=== PATIENT | female | born 1945 | race Caucasian/White ===

== ENCOUNTER 2016-08-27 15:33 | Inpatient (IN) | payer MEDICARE, OTHER ==
[~2016-08-27] VITALS: Ht 165.1 cm; Wt 49.8 kg
[2016-08-27] MEDS ORDERED: PRINIVIL10 MG PO (16:25)
[2016-08-27 16:57] LABS: BASO % 0.2 % (0.0-2.0); EOS # 0.1 (0.0-0.7); EOS % 0.7 % (0-4.0); GRAN # 7.1 (1.4-6.5); HEMOGLOBIN 12.9 g/dl (12.5-16.0); LYMPH # 0.8 (1.2-3.4); LYMPH % 8.9 % (20.0-51.0); MEAN CELL VOLUME 90 fl (80.0-100.0); MEAN CORPUSCULAR HEMOGLOBIN 32 pg (27.0-31.0); MEAN CORPUSCULAR HGB CONC 35 g/dl (33.0-37.0); MEAN PLATELET VOLUME 9.1 fl (7.4-10.4); MONO # 0.6 (0.1-0.6); MONO % 6.9 % (1.7-9.3); PLATELET COUNT 187 K/mm3 (130-400); RED BLOOD COUNT 4.06 M/mm3 (4.10-5.30); REDCELL DISTRIBUTION WIDTH-CV 13.3 % (11.5-14.5); WHITE BLOOD COUNT 8.6 K/mm3 (4.8-10.8)
[2016-08-27 17:02] LABS: HEMATOCRIT 36.6 % (37.0-47.0)
[2016-08-27 17:06] LABS: ADJUSTED CALCIUM 9.1 mg/dL (8.4-10.2); ALBUMIN 3.8 gm/dL (3.5-5.0); BILIRUBIN,TOTAL 0.8 mg/dL (0.0-1.0); CALCIUM 8.9 mg/dL (8.4-10.2); CREATININE, serum 0.52 mg/dL (0.52-1.25); POTASSIUM 4.4 mmol/L (3.4-5.0); PROTHROMBIN TIME 10.9 SECONDS (9.7-12.8); TOTAL PROTEIN 6.8 gm/dL (6.4-8.2)
[2016-08-27 18:15] VITALS: BP 175/62; PULSE 79; TEMP 98.2
[2016-08-27 18:20] VITALS: BP 175/62; PULSE 79; TEMP 98.2
[2016-08-27] MEDS ORDERED: ASPI325T6 PO (18:23)
[2016-08-27] MEDS ORDERED: FERROUS GL325 MG/TAB PO (18:23)
[2016-08-27] MEDS ORDERED: TYLENOL 325MG325 MG PO (18:24)
[2016-08-27] MEDS ORDERED: VITAMIN C500 MG PO (18:25)
[2016-08-27 21:49] VITALS: BP 171/59; PULSE 71; TEMP 98.4
[2016-08-28] VITALS (12 sets, daily range): BP systolic 131–198; BP diastolic 41–65; PULSE 7–93; TEMP 98–99
[2016-08-28 07:50] LABS: BASO % 0.3 % (0.0-2.0); EOS # 0.2 (0.0-0.7); EOS % 2.2 % (0-4.0); GRAN # 5.3 (1.4-6.5); GRAN % 73.1 % (42.2-75.2); LYMPH % 13.8 % (20.0-51.0); MEAN CELL VOLUME 91 fl (80.0-100.0); MEAN CORPUSCULAR HGB CONC 35 g/dl (33.0-37.0); MEAN PLATELET VOLUME 9.7 fl (7.4-10.4); MONO # 0.7 (0.1-0.6); MONO % 10.2 % (1.7-9.3); PLATELET COUNT 177 K/mm3 (130-400); RED BLOOD COUNT 3.68 M/mm3 (4.10-5.30); REDCELL DISTRIBUTION WIDTH-CV 13.6 % (11.5-14.5); WHITE BLOOD COUNT 7.3 K/mm3 (4.8-10.8)
[2016-08-28 07:59] LABS: CALCIUM 8.3 mg/dL (8.4-10.2); CREATININE, serum 0.43 mg/dL (0.52-1.25); POTASSIUM 3.7 mmol/L (3.4-5.0)
[2016-08-28 08:01] LABS: HEMATOCRIT 33.5 % (37.0-47.0); HEMOGLOBIN 11.7 g/dl (12.5-16.0); MEAN CORPUSCULAR HEMOGLOBIN 32 pg (27.0-31.0)
[2016-08-28 13:07] LABS: PH 6 (5-8); SQUAMOUS EPITHELIAL None Seen /hpf; URINE APPEARANCE Clear; URINE BACTERIA None Seen /hpf; URINE BILIRUBIN Negative (NEGATIVE); URINE BLOOD 1+ (NEGATIVE); URINE COLOR Yellow; URINE GLUCOSE Negative (NEGATIVE); URINE KETONE Negative (NEGATIVE); URINE UROBILINOGEN Negative (NEGATIVE); URINE WBC 0-2 /hpf
[2016-08-29 01:46] VITALS: BP 191/66; PULSE 68; TEMP 97.7
[2016-08-29 07:11] LABS: HEMATOCRIT 37.4 % (37.0-47.0); HEMOGLOBIN 12.8 g/dl (12.5-16.0)
[2016-08-29 07:22] LABS: CALCIUM 9.3 mg/dL (8.4-10.2); CREATININE, serum 0.52 mg/dL (0.52-1.25); POTASSIUM 3.5 mmol/L (3.4-5.0)
[2016-08-29 10:26] VITALS: BP 149/53; PULSE 88; TEMP 98.5
[2016-08-29 14:25] VITALS: BP 150/52; PULSE 83; TEMP 98.7
[2016-08-29 18:08] VITALS: BP 177/71; PULSE 71; TEMP 98.9
[2016-08-29 21:53] VITALS: BP 150/52; PULSE 71; TEMP 98.1
[2016-08-29 23:38] LABS: PH 7 (5-8); SQUAMOUS EPITHELIAL None Seen /hpf; URINE APPEARANCE Clear; URINE BACTERIA Rare /hpf; URINE BILIRUBIN Negative (NEGATIVE); URINE BLOOD 3+ (NEGATIVE); URINE COLOR Straw; URINE GLUCOSE Negative (NEGATIVE); URINE KETONE Negative (NEGATIVE); URINE UROBILINOGEN Negative (NEGATIVE); URINE WBC 0-2 /hpf
[2016-08-30 05:49] VITALS: BP 166/60; PULSE 87; TEMP 98.2
[2016-08-30 06:35] LABS: HEMOGLOBIN 12.2 g/dl (12.5-16.0)
[2016-08-30 06:48] LABS: CALCIUM 8.7 mg/dL (8.4-10.2); CREATININE, serum 0.5 mg/dL (0.52-1.25); POTASSIUM 3.5 mmol/L (3.4-5.0)
[2016-08-30 06:50] LABS: HEMATOCRIT 34.9 % (37.0-47.0)
[2016-08-30 09:29] VITALS: BP 157/59; PULSE 84; TEMP 98.5
[2016-08-30 13:39] VITALS: BP 168/51; PULSE 70; TEMP 98.5
[2016-08-30 17:32] VITALS: BP 147/45; PULSE 72; TEMP 98.4
[2016-08-30 21:31] VITALS: BP 139/62; PULSE 71; TEMP 97.5
[2016-08-31 05:11] VITALS: BP 159/54; PULSE 63; TEMP 98
[2016-08-31 10:37] VITALS: BP 158/47; PULSE 74; TEMP 98.7
[2016-08-31] MEDS ORDERED: NORCO 325 MG-7.1 TAB PO (11:31)
[2016-08-31] MEDS ORDERED: PRINZIDE 12.5 M1 TA1 PO (11:31)
== END 2016-08-31 13:36 | disposition home or self-care (01) | DRG 481 ==
LOC: COL.ER 15:33 → SURG 16:57
PROVIDERS: Family Medicine; Nurse Practitioner Family; Orthopaedic Surgery Sports Medicine; Physician Assistant
PROC: 0QH634Z Insertion of Internal Fixation Device into Right Upper Femur, Percutaneous Approach (ICD-10-PCS; principal; 2016-08-28 09:00)
DX: S72.041A Displaced fracture of base of neck of right femur, initial encounter for closed fracture (principal); E87.1 Hypo-osmolality and hyponatremia; F05 Delirium due to known physiological condition; E44.0 Moderate protein-calorie malnutrition; Z68.1 Body mass index [BMI] 19.9 or less, adult; W18.30XA Fall on same level, unspecified, initial encounter; I10 Essential (primary) hypertension; Z86.73 Personal history of transient ischemic attack (TIA), and cerebral infarction without residual deficits; R33.9 Retention of urine, unspecified
CPT/HCPCS: 99223-AI; 99232-AI; 99233-AI; 99239; A9284; C1713; C1776; J0360; J0690; J1100; J2060; J2270; J2405; J2704; J3010; J7030

== ENCOUNTER 2017-07-23 15:00 | Inpatient (IN) | payer MEDICARE, OTHER ==
[~2017-07-23] VITALS: Ht 167.6 cm; Wt 42.9 kg
[~2017-07-23 15:00] MED LIST: ASPI325T6 PO; FERROUS GL325 MG/TAB PO; NORCO 325 MG-7.1 TAB PO; PRINIVIL10 MG PO; PRINZIDE 12.5 M1 TA1 PO; TYLENOL 325MG325 MG PO; VITAMIN C500 MG PO
[2017-08-02] MEDS ORDERED: PRINZIDE 12.5 M1 TAB PO (12:11)
[2017-08-02] MEDS ORDERED: PRILOSEC10 MG PO (12:12)
[2017-08-02] MEDS ORDERED: ALEVE 220MG220 MG PO (12:12)
[2017-08-05] VITALS (13 sets, daily range): BP systolic 123–169; BP diastolic 50–81; PULSE 57–88; TEMP 97.6–98.6
[2017-08-05] MEDS ORDERED: PLAVIX 75MG TAB75 MG PO (07:31)
[2017-08-05] MEDS ORDERED: LIPITOR 40MG TA40 MG PO (07:31)
[2017-08-05] MEDS ORDERED: ASPIRIN E.C. 8181 MG PO (07:31)
[2017-08-05] MEDS ORDERED: COLACE 100100 MG/CAP PO (07:32)
[2017-08-05] MEDS ORDERED: MULTI VITAMINS1 TAB PO (07:32)
[2017-08-05] MEDS ORDERED: PERCOCET 325 MG1 TA2 PO (07:33)
[2017-08-06 03:07] VITALS: BP 158/82; PULSE 105; TEMP 98.3
[2017-08-06 07:10] LABS: HEMATOCRIT 25.7 % (37.0-47.0); HEMOGLOBIN 8.6 g/dl (12.5-16.0)
[2017-08-06 12:00] VITALS: BP 141/47; PULSE 97; TEMP 98.5
[2017-08-06 19:52] VITALS: BP 132/51; PULSE 81; TEMP 98.7
[2017-08-07 04:23] VITALS: BP 144/46; PULSE 82; TEMP 98.5
[2017-08-07 06:38] LABS: HEMATOCRIT 22.5 % (37.0-47.0); HEMOGLOBIN 7.5 g/dl (12.5-16.0)
[2017-08-07 07:40] VITALS: BP 130/60; PULSE 87; TEMP 98.6
[2017-08-07] MEDS ORDERED: ASPI325T6 PO (11:06)
[2017-08-07 12:13] VITALS: BP 111/43; PULSE 80; TEMP 97.7
== END 2017-08-07 15:40 | disposition home or self-care (01) | DRG 470 ==
LOC: JCC 08-05 06:19
PROVIDERS: Orthopaedic Surgery Sports Medicine
PROC: 0SR90JA Replacement of Right Hip Joint with Synthetic Substitute, Uncemented, Open Approach (ICD-10-PCS; principal; 2017-08-05 10:00)
PROC: 0QP604Z Removal of Internal Fixation Device from Right Upper Femur, Open Approach (ICD-10-PCS; 2017-08-05 10:00)
DX: M87.251 Osteonecrosis due to previous trauma, right femur (principal); S72.141S Displaced intertrochanteric fracture of right femur, sequela; G89.21 Chronic pain due to trauma; I10 Essential (primary) hypertension; Z87.891 Personal history of nicotine dependence; G30.9 Alzheimer's disease, unspecified; F02.80 Dementia in other diseases classified elsewhere, unspecified severity, without behavioral disturbance, psychotic disturbance, mood disturbance, and anxiety
CPT/HCPCS: A9284; C1776; J0690; J1100; J2060; J2250; J2370; J2405; J2704; J3010; J7120

== ENCOUNTER 2021-01-06 20:17 | Inpatient (IN) | payer MEDICARE, OTHER ==
[~2021-01-06] VITALS: Ht 167.6 cm; Wt 52.7 kg
--- NOTE | 2021-01-06 20:00 | NUR ---
RECEIVED PHONED REPORT FROM [facility] MARIBELL Melendrez RN, DONNY. PATIENT TO LEAVE VIA EMS AFTER PHONE REPORT COMPLETED. AWAITING PATIENT ARRIVAL TO BE ADMITTED TO ROOM 325 VIA EMS. WAS INFORMED [facility] Dorys.Jhoan PROVIDER REQUESTING PATIENT HAVE A SITTER FOR PATIENT.
[~2021-01-06 20:17] MED LIST changes: +ALEVE 220MG220 MG PO; +ASPIRIN E.C. 8181 MG PO; +COLACE 100100 MG/CAP PO; +LIPITOR 40MG TA40 MG PO; +MULTI VITAMINS1 TAB PO; +PERCOCET 325 MG1 TA2 PO; +PLAVIX 75MG TAB75 MG PO; +PRILOSEC10 MG PO; +PRINZIDE 12.5 M1 TAB PO
--- NOTE | 2021-01-06 21:40 | NUR ---
PATIENT TO ROOM VIA EMS, TRANSFER FROM CART TO BED WITH PATIENT C/O L HIP/LEG PAIN WITH MOVEMENT. OBSERVED PURPLISH BRUISING TO R BUTTOCK WITH SWELLING. PATIENT FOLLOWS SOME COMMANDS. WALKER IN PLACE, DRAINING CLEAR LIGHT YELLOW URINE. NO REDNESS TO COCCYX AREA. OBSERVED BLE SWELLING WITH VERY DRY FLAKEY SKIN OBSERVED. ARMAAN HEELS VERY DRY BUT SKIN INTACT TO BOTH HEALS. PATIENT CONFUSED TO PLACE AND TIME.
[2021-01-06 21:45] VITALS: BP 185/77; PULSE 114; TEMP 98.1
--- NOTE | 2021-01-06 22:19 | NUR ---
ATTEMPTED TO CALL SPOUSE FOR INFORMATION FOR ADMIT PROCESS, NO ANSWER. LMOM FOR SPOUSE TO CALL NURSING FOR MORE INFORMATION ON PATIENT. WAITING INDOOR LANDSCAPER/GARDENER BACK.
[2021-01-06] MEDS ORDERED: ZESTRIL 5MG5 MG PO (22:24)
[2021-01-06] MEDS ORDERED: ASPIRIN 81M81 MG/TA2 PO (22:26)
[2021-01-06] MEDS ORDERED: NAMENDA5 MG PO (22:27)
[2021-01-06 23:31] LABS: HEMOGLOBIN 11.7 g/dl (12.5-16.0); MEAN CELL VOLUME 85 fl (80.0-100.0); MEAN CORPUSCULAR HEMOGLOBIN 30 pg (27.0-31.0); MEAN CORPUSCULAR HGB CONC 35 g/dl (33.0-37.0); PLATELET COUNT 213 K/mm3 (130-400); RED BLOOD COUNT 3.97 M/mm3 (4.10-5.30); REDCELL DISTRIBUTION WIDTH-CV 13.6 % (11.5-14.5)
[2021-01-06 23:32] LABS: HEMATOCRIT 33.8 % (37.0-47.0)
[2021-01-06 23:40] LABS: INR 0.9 (0.8-3.0); PROTHROMBIN TIME 10.4 SECONDS (9.7-12.8)
[2021-01-06 23:46] LABS: ALBUMIN 3.7 gm/dL (3.4-4.8); BILIRUBIN,TOTAL 0.9 mg/dL (0.2-1.2); CALCIUM 8.7 mg/dL (8.4-10.2); CREATININE, serum 0.74 mg/dL (0.57-1.11); TOTAL PROTEIN 6.9 gm/dL (6.2-8.1)
[2021-01-06 23:51] VITALS: BP 118/60; PULSE 117; TEMP 98.4
[2021-01-06 23:51] LABS: BAND 15 % (0-10); BASOPHIL 1 % (0-2); LYMPHOCYTE 2 % (20.0-51.0); NEUTROPHILS 78 % (42.0-75.2); PLATELET ESTIMATE NORMAL (NORMAL)
[2021-01-07] VITALS (11 sets, daily range): BP systolic 99–185; BP diastolic 42–88; PULSE 88–139; TEMP 97.1–99.4
[2021-01-07 00:16] LABS: COLLECTION METHOD CATHETER
[2021-01-07 00:22] LABS: PH 7 (5-8); SQUAMOUS EPITHELIAL None Seen /hpf (0-10); URINE APPEARANCE Clear (CLEAR/HAZY); URINE BACTERIA None Seen (NONE SEEN); URINE BILIRUBIN Negative (NEGATIVE); URINE BLOOD Negative (NEGATIVE); URINE COLOR Straw (YELLOW); URINE GLUCOSE 1+ (NEGATIVE); URINE KETONE Trace (NEGATIVE); URINE LEUKOCYTE ESTERASE Negative (NEGATIVE); URINE NITRATE Negative (NEGATIVE); URINE PROTEIN(semi-quant) Negative (NEGATIVE); URINE UROBILINOGEN Negative (NEGATIVE)
--- NOTE | 2021-01-07 03:25 | NUR ---
UNABLE TO UPDATE PHARMACY OF CHOICE DUE TO NO FAMILY AVAILABLE ON ADMIT, LMOM ON VOICEMAIL FOR TO CALL NURSING STAFF, WITH NO CALL BACK RECEIVED FROM TO HAVE ADMIT INFORMATION CLARIFIED AND/OR UPDATED. STILL WAITING LAW FIRM CONSULTANT BACK FROM SPOUSE.
--- NOTE | 2021-01-07 04:44 | NUR ---
WHEN ASKED PATIENT DENIES HAVING HIP PAIN THEN INDICATES HER LEFT HIP/GROIN AREA HURTS. SEE MAR FOR PAIN MEDS GIVEN. UNABLE TO RECALL NAMES OF HER CHILDREN BUT REPORTS THAT SHE HAS 2 CHILDREN. IS ABLE TO RECALL NAME OF HER .
--- NOTE | 2021-01-07 07:03 | NUR ---
CHANGE OF SHIFT REPORT GIVEN TO DAY SHIFT RNILANA.
--- NOTE | 2021-01-07 07:38 | NUR ---
Patient laying in bed, A&Ox2, confused on location. VSS,, BP hypertensive. Patient states that she is not in pain, but has hand left hip. IV CDI, fluids infusing. Ice on left hip. SCd right leg. Left leg elevated on pillow. Call light within reach. Call light within reach. Bed alarm on
[2021-01-07 09:32] LABS: BASO % 0.2 % (0.0-2.0); EOS % 0.2 % (0-4.0); GRAN # 7.6 K/mm3 (1.4-6.5); GRAN % 86.6 % (42.2-75.2); HEMOGLOBIN 11.4 g/dl (12.5-16.0); LYMPH # 0.6 K/mm3 (1.2-3.4); LYMPH % 6.4 % (20.0-51.0); MEAN CELL VOLUME 85 fl (80.0-100.0); MEAN CORPUSCULAR HEMOGLOBIN 30 pg (27.0-31.0); MEAN CORPUSCULAR HGB CONC 35 g/dl (33.0-37.0); MEAN PLATELET VOLUME 8.9 fl (7.4-10.4); MONO # 0.6 K/mm3 (0.1-0.6); MONO % 6.3 % (1.7-9.3); PLATELET COUNT 218 K/mm3 (130-400); RED BLOOD COUNT 3.86 M/mm3 (4.10-5.30); REDCELL DISTRIBUTION WIDTH-CV 13.8 % (11.5-14.5)
[2021-01-07 09:35] LABS: HEMATOCRIT 32.9 % (37.0-47.0)
[2021-01-07 09:43] LABS: CALCIUM 8.5 mg/dL (8.4-10.2); CREATININE, serum 0.77 mg/dL (0.57-1.11); POTASSIUM 4.5 mmol/L (3.5-4.5)
--- NOTE | 2021-01-07 11:27 | NUR ---
Patient taken down for a procedure
--- NOTE | 2021-01-07 16:05 | NUR ---
Patient to room 325 from a procedure. at the bedside. Patient sleeping, but easily awakened with verbal command, then falls back to sleep. Abductor pad between legs. Left leg site CDI, ice on left hip. CMS WNL. VSS. IV CDI. Pope intact. Nurse oriented the patient and to location and room. Post op VS being monitored. No further needs expressed. Call light within reach
--- NOTE | 2021-01-07 16:45 | NUR ---
Patients HR tachycardic, notified TARIK Mayen. Orders placed. Will continue to monitor. Call light within reach
--- NOTE | 2021-01-07 18:07 | NUR ---
Patients VS WNL after getting orders from Dr Rios r/t tachycardia and hypertension. Alert to verbal command, then falls back to sleep. IV CDI, fluids infusing. Denies pain and discomfort. Left leg incision CDI, abductor pad in place. Pope intact. Will continue to monitor. Call light within reach. Door left open
[2021-01-08 03:39] VITALS: BP 124/42; PULSE 86; TEMP 98.3
[2021-01-08 07:06] LABS: HEMATOCRIT 28.9 % (37.0-47.0); HEMOGLOBIN 9.5 g/dl (12.5-16.0); INR 1.1 (0.8-3.0); PROTHROMBIN TIME 11.8 SECONDS (9.7-12.8)
[2021-01-08 07:24] LABS: CALCIUM 8.6 mg/dL (8.4-10.2); CREATININE, serum 0.89 mg/dL (0.57-1.11); POTASSIUM 3.8 mmol/L (3.5-4.5)
[2021-01-08 07:39] VITALS: BP 122/43; PULSE 65; TEMP 98.2
--- NOTE | 2021-01-08 08:00 | NUR ---
Patient laying in bed, easily awakened with verbal command. A&Ox4, intermittent confusion, nursing staff orienting patient as needed. VSS. IV CDI, fluids infusing. Denies pain and discomfort. States that she is not hungry, but nurse will order breakfast. Abductor pad in place. Pope intact. Call light within reach. No further needs expressed.
--- NOTE | 2021-01-08 11:20 | NUR ---
SW met with patient to complete intake. Nurse provided that patient has dementia, but is alert. Spouse present during intake and prefered to answer questions due to patient minimally understanding questions. Patient did acknowledge SW's presence and repeated the same phrase during entirety of intake. Spouse Baldomero Fernando [phone] provided he and patient live in [facility], he states that she does not utilize DME and is assisted by home with any thing that is needed for ADL's. PCP is Dr. Mansfield, pharmacy is [facility], and spouse provides that he is DPOA/HC. Spouse provides patient potentialy going to therapy and prefers [facility]. SW will continue to follow. DC plan: Rehab preferred [facility]
[2021-01-08 11:44] VITALS: BP 134/48; PULSE 81; TEMP 97.8
--- NOTE | 2021-01-08 15:08 | NUR ---
Spouse of patient informed SW that he would prefer for patient to go to rehab at [facility]. PHI faxed referral documentation to [facility] for review to [phone]. PHI will continue to follow.
[2021-01-08 15:09] VITALS: BP 134/47; PULSE 90; TEMP 98.1
--- NOTE | 2021-01-08 17:20 | NUR ---
Patient repositioned for comfort. Patient took abductor pad out between legs and the nurse placed it back. Patient also took out INT in left hand. Patient positioned for dinner and nurse cut up meat. A&O, but confused. VSS. IV CDI, fluids infusing. Pope intact. Left leg incision CDI. Ice on site. Call light within reach. Bed alarm on. Door left open
[2021-01-08 20:10] VITALS: BP 162/81; PULSE 127; TEMP 98.2
[2021-01-09] VITALS: BP 111/44; PULSE 128; TEMP 98.9
[2021-01-09 04:00] VITALS: BP 110/46; PULSE 81; TEMP 9.4
[2021-01-09 06:32] LABS: HEMATOCRIT 25.6 % (37.0-47.0); HEMOGLOBIN 8.5 g/dl (12.5-16.0)
[2021-01-09 06:37] LABS: INR 1.1 (0.8-3.0); PROTHROMBIN TIME 12.2 SECONDS (9.7-12.8)
[2021-01-09 06:42] LABS: CALCIUM 7.7 mg/dL (8.4-10.2); CREATININE, serum 0.68 mg/dL (0.57-1.11); MAGNESIUM 1.7 mg/dL (1.6-2.6); POTASSIUM 3.7 mmol/L (3.5-4.5)
--- NOTE | 2021-01-09 07:38 | NUR ---
pt given oxycodone and scheduled tylenol for pain this shift. flacc scores elevated with turning and repositioning, pt confused all shift, removes telemetry leads, tries to remove wedge pillow, and messes with egan catheter, pt had elevated HR and required restarting metoprolol at 1/2 previous dose q6 IV, egan draining clear yellow urine, IVF infusing @50cc/hr per PIV secured with guadalupe wrap.
--- NOTE | 2021-01-09 08:00 | NUR ---
PT ALERT, ORIENTED TO PERSON ONLY. PT HAS CLEAR LUNGS TO AUSCULTATION. PT S1,S2 SOUNDS AUSCULTATED. PT HAS LEFT HIP DRESSING IN PLACE, CLEAN, DRY, INTACT. PT HAS REDDENED SKIN AROUND DRESSING. PT HAS REDDENED RIGHT HEEL, BLANCHABLE. PLACED ON PILLOW TO ALLVIATE PRESSURE. PT HAS HIP ABDUCTOR IN BETWEEN LEGS WHILE IN BED. PT HAS CALL LIGHT WITHIN REACH.
[2021-01-09 08:13] VITALS: BP 125/47; PULSE 74; TEMP 97.2
--- NOTE | 2021-01-09 09:20 | NUR ---
Contact made with [facility] this morning and spoke with Marie,who reports she didn't receive the referral. Re-faxed the patient's information and Marie will let me know if they can accept the patient.
[2021-01-09] MEDS ORDERED: ASPIRIN E.C. 8181 MG PO (12:06)
[2021-01-09] MEDS ORDERED: VITAMIN C500 MG PO (12:06)
[2021-01-09] MEDS ORDERED: MAG-OX 400400 MG/TAB PO (12:06)
[2021-01-09] MEDS ORDERED: OSCAL 500 TAB500 MG PO (12:06)
[2021-01-09] MEDS ORDERED: ROXICODONE 55 MG/TAB PO (12:06)
[2021-01-09] MEDS ORDERED: SENEXON-S 50-81 EACH PO (12:06)
[2021-01-09] MEDS ORDERED: Ferrous Sulfate PO (12:06)
[2021-01-09 12:24] VITALS: BP 105/55; PULSE 92; TEMP 97.3
--- NOTE | 2021-01-09 13:51 | NUR ---
tunnel worker notified by Marie at [facility] that they are good to accept the patient. Patient's Baldomero is at bedside and verbalizes that he will be able to transport the patient. RN and physician staff notified.
--- NOTE | 2021-01-09 15:17 | NUR ---
FOUNDRY WORKER PERFORMED CATH CARE. FOUNDRY WORKER UNABLE TO CHART, CHARTED IN DIFFERENT LOCATION.
--- NOTE | 2021-01-09 15:37 | NUR ---
PT DISCHARGING TO TRANSFER TO [facility] BED. PT EDUCATION GIVEN TO , DPOA TO BEST OF ABILITY. HEALTH SUMMARY AND FUTURE APPOINTMENTS GIVEN TO BEST OF ABILITY. PT IV DISCONTINUED, TELE DISCONTINUED. PT TO LEAVE WITH AND USE WHEELCHAIR.
--- NOTE | 2021-01-09 15:42 | NUR ---
Patient's d/c orders and covid swab faxed to [facility]. Medicare IM form present to the patient and her . Education provided and due to the patients cognitive condition, her Baldomero signed form. Copy place in the patient's chart and original given to Baldomero.
--- NOTE | 2021-01-09 16:08 | NUR ---
PT DISCHARGED, CALLED REPORT TO [facility].
== END 2021-01-09 16:05 | disposition swing bed (61) | DRG 522 ==
LOC: MEDICAL 20:17 → SURG 21:28
PROVIDERS: Orthopaedic Surgery; Physician Assistant; Student in an Organized Health Care Education/Training Program; ADMIT Internal Medicine
PROC: 0SRS0J9 Replacement of Left Hip Joint, Femoral Surface with Synthetic Substitute, Cemented, Open Approach (ICD-10-PCS; principal; 2021-01-07 11:30)
DX: S72.012A Unspecified intracapsular fracture of left femur, initial encounter for closed fracture (principal); F03.90 Unspecified dementia, unspecified severity, without behavioral disturbance, psychotic disturbance, mood disturbance, and anxiety; I10 Essential (primary) hypertension; E78.5 Hyperlipidemia, unspecified; D50.9 Iron deficiency anemia, unspecified; E87.6 Hypokalemia; E83.42 Hypomagnesemia; W18.30XA Fall on same level, unspecified, initial encounter; Y93.89 Activity, other specified; Y92.009 Unspecified place in unspecified non-institutional (private) residence as the place of occurrence of the external cause; Z86.73 Personal history of transient ischemic attack (TIA), and cerebral infarction without residual deficits; Z79.82 Long term (current) use of aspirin; Z87.891 Personal history of nicotine dependence; Z20.822 Contact with and (suspected) exposure to COVID-19
CPT/HCPCS: 99223-AI; 99233-AI; 99239; A9284; C1776; J0360; J0690; J1940; J2270; J2704; J3010; J3475; J3480; J7030; J7040; J7120; P9016